=== PATIENT | female | born 1945 | race African-American/Black ===

== ENCOUNTER 2023-05-03 10:17 | Outpatient (CLI) | payer OTHER, MEDICAID | END 2023-05-03 10:18 | disposition home or self-care (01) | LOC: SCSCT 10:17 | PROVIDERS: ATTEND Orthopaedic Surgery Hand Surgery | DX: M25.532 Pain in left wrist (principal); M18.12 Unilateral primary osteoarthritis of first carpometacarpal joint, left hand; S63.072A Subluxation of distal end of left ulna, initial encounter ==